=== PATIENT | male | born 1980 | race Two or more races ===

== ENCOUNTER 2017-04-12 21:18 | Emergency (ER) | payer MEDICAID, OTHER ==
[~2017-04-12] VITALS: Ht 165.1 cm; Wt 68.0 kg
[2017-04-12 21:25] VITALS: BP 127/79
== END 2017-04-13 01:08 | disposition left against medical advice (07) ==
LOC: ER 21:18
DX: Z53.21 Procedure and treatment not carried out due to patient leaving prior to being seen by health care provider (principal); F17.210 Nicotine dependence, cigarettes, uncomplicated

== ENCOUNTER 2023-10-29 14:11 | Emergency (ER) | payer MEDICAID ==
[~2023-10-29] VITALS: Ht 177.8 cm; Wt 68.0 kg
[2023-10-29 14:14] VITALS: O2SAT 99
[2023-10-29] MEDS: IBUPROFEN 600MG TABLET PO STA (14:48)
[2023-10-29] MEDS: BACITRACIN ZINC OINT UDPKT TOP ONE (15:30)
[2023-10-29] MEDS: LIDOCAINE HCL/EPINEPHRINE 1%-EPI 1:100,000 20 ML VIAL INFIL ONE (15:30)
[2023-10-29] MEDS: TETANUS, DIPHTHERIA, PERTUSSIS VAC/PF 0.5ML (>10YR OLD) IM ONE (16:19)
[2023-10-29] MEDS ORDERED: AMOX1TAB16 MT (16:27)
[2023-10-29 16:42] VITALS: BP 129/74; PULSE 95; RESP 16; TEMP 98.5
== END 2023-10-29 16:44 | disposition home or self-care (01) ==
LOC: ER 14:28
DX: S51.852A Open bite of left forearm, initial encounter (principal); W54.0XXA Bitten by dog, initial encounter; Y93.89 Activity, other specified; Y92.89 Other specified places as the place of occurrence of the external cause; Y99.8 Other external cause status
CPT/HCPCS: 73090; 90715; 12002; 90471; 99283; J3490; Z7610

== ENCOUNTER 2025-01-30 02:03 | Emergency (ER) | payer MEDICAID ==
[~2025-01-30] VITALS: Ht 162.6 cm; Wt 69.0 kg
[~2025-01-30 02:03] MED LIST: AMOX1TAB16 MT
[2025-01-30 02:09] VITALS: O2SAT 99
[2025-01-30 02:13] VITALS: BP 137/86; PULSE 101; RESP 18; TEMP 36.9; O2SAT 100
[2025-01-30] MEDS: KETOROLAC 15MG/ML VIAL IM ONE (03:55)
[2025-01-30] MEDS ORDERED: AMOX1TAB16 MT (04:00)
[2025-01-30] MEDS ORDERED: NAPR-1176 MT (04:01)
== END 2025-01-30 04:35 | disposition home or self-care (01) ==
LOC: ER 02:03
DX: K04.7 Periapical abscess without sinus (principal); Z79.899 Other long term (current) drug therapy
CPT/HCPCS: 96372; 99283; J1885; Z7610

== ENCOUNTER 2025-08-18 19:23 | Emergency (ER) | payer MEDICAID ==
[~2025-08-18] VITALS: Ht 162.6 cm; Wt 64.7 kg
[~2025-08-18 19:23] MED LIST changes: +NAPR-1176 MT
[2025-08-18 19:29] VITALS: BP 129/76; TEMP 36.7; O2SAT 100
[2025-08-18 19:39] VITALS: PULSE 100; RESP 18; O2SAT 100
== END 2025-08-18 23:13 | disposition left against medical advice (07) ==
LOC: ER 19:23
DX: J02.9 Acute pharyngitis, unspecified (principal); F45.8 Other somatoform disorders; Z79.1 Long term (current) use of non-steroidal anti-inflammatories (NSAID)
CPT/HCPCS: 70360; 99283